=== PATIENT | male | born 1960 | race Caucasian/White ===

== ENCOUNTER → 2021-06-01 15:39 | Outpatient (CLI) | payer OTHER, SELFPAY ==
--- NOTE | ~2021-06-01 | CT_ITS ---
EXAMINATION: CT ankle RT wo con DATE: 06/01/2021 15:59 INDICATION: Right ankle pain TECHNIQUE: High resolution computed tomography (CT) of the right ankle, mid and hindfoot was performe d without intravenous contrast. Additional sagittal and coronal reconstructions were performed. Autom ated exposure control and iterative reconstruction technique were employed. The dose-length product w as 174.50 mGy-cm. COMPARISON: 05/28/2021 FINDINGS: Mild varus angulation at the right tibiotalar joint with severe medial sided joint space narrowing wh ere there is essentially [id number] apposition. Alignment is otherwise normal. No acute fracture. P rominent heterotopic ossification along the posterior inferior tibiofibular ligament, the talar side of the anterior talofibular ligament and to a lesser degree along the anterior inferior tibiofibular ligament likely sequela of chronic lateral high ankle sprain. Additional mild osteoarthritis at multi ple joints in the mid and hindfoot including at the naviculocuneiform articulation with subarticular cystic change at the medial cuneiform. There is thickening and decreased attenuation of the peroneus brevis tendon at the level of the tip of the lateral malleolus consistent with tendinopathy. No defin itive tear although sensitivity particularly for nodule split tears is significantly limited on CT. N o right ankle joint effusion. IMPRESSION: 1. 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 2. Peroneus brevis tendinopathy. Reviewed, dictated and finalized at location A. IMPRESSION: 1. Severe tibiotalar osteoarthritis with a be secondary to chronic lateral ankl e sprain which is suggested by the pattern of heterotopic ossification along a few of the stabilizing lateral ankle ligaments. 2. Peroneus brevis tendinopathy.
== END ==
PROVIDERS: PCP Internal Medicine; Visit Provider Nurse Practitioner Family
DX: M19.071 Primary osteoarthritis, right ankle and foot (principal)
CPT/HCPCS: 73700